=== PATIENT | male | born 1950 | race Two or more races ===

== ENCOUNTER → 2021-02-17 | Day surgery (SDC) | payer OTHER ==
[~2021-02-17] MED LIST: ALPRAZOLAM XR0.5 MG PO; IRBESARTAN-HCT1 EAC1 PO; METFORMIN HCL500 M3 PO; OMEPRAZOLE40 MG PO; PERCOCET 5-3251 EACH PO; PREGABALIN150 MG PO; TAMS0.4C PO; TOPROL XL100 M1 PO
== END | disposition home or self-care (01) ==
LOC: ADM 02-12 07:45 → CIR.AMB 07:45
PROVIDERS: ATTEND Surgery
DX: N52.01 Erectile dysfunction due to arterial insufficiency (principal); Z20.822 Contact with and (suspected) exposure to COVID-19
CPT/HCPCS: 54405; C1813